=== PATIENT | female | born 1970 | race Caucasian/White ===

== ENCOUNTER → 2025-01-14 14:25 | Outpatient (REF) | payer OTHER, SELFPAY | LOC: RAD 14:25 | PROVIDERS: ATTENDING PHYSICIAN Registered Nurse | DX: R74.8 Abnormal levels of other serum enzymes (principal); R14.0 Abdominal distension (gaseous); R19.7 Diarrhea, unspecified | CPT/HCPCS: 74177; Q9967 ==